=== PATIENT | male | born 1955 | race Hispanic/Latino ===

== ENCOUNTER 2019-05-26 06:51 | Day surgery (SDC) | payer OTHER ==
[2019-05-26] MEDS ORDERED: WATER FOR IRRIG STERILE IR ONE (07:36)
[2019-05-26] MEDS ORDERED: WATER FOR IRRIG STERILE ONE (07:36)
[2019-05-26] MEDS ORDERED: INFANTS' GAS RELIEF PO ONE (07:37)
[2019-05-26] MEDS ORDERED: DIPRIVAN 10 MG/ML IV ONE ×4 (07:58→08:48)
[2019-05-26] MEDS ORDERED: NACL 0.9% 1000 ML 1,000 ML IV SCH (08:00)
[2019-05-26] MEDS ORDERED: XYLOCAINE MPF 2% ONE (08:00)
--- NOTE | 2019-05-26 09:11 | Procedure Note ---
Date of procedure: 05/26/19 Pre-op diagnosis: Colon Polyp Screening Post-op diagnosis: other (Multiple, Colon Polyps (Three in the Cecum, two in the Transverse Colon polyps and Descending Colon Polyps-all snare excised)/Few left Colon Diverticuli/ No Internal Hemorrhoids noted) Procedure: Colonoscopy with snare polypectomy Anesthesia: MAC Surgeon: FLORENTINO ARAUJO Estimated blood loss: minimal Pathology: list Specimen disposition: to lab Condition: stable Disposition: same day (Avoid aspirin and NSAID for 4 days;otherwise resume home medication. Encourage fiber intake and follow up in 1 to 2 weeks ([phone]).)
[2019-05-26 09:21] VITALS: BP 105/69
--- NOTE | 2019-05-26 09:48 | Anesthesia Consultation ---
Anesthesia Consult and Med Hx Date of service: 05/26/19 - Airway Anesthetic Teeth Evaluation: Poor ROM Head & Neck: Adequate Mental/Hyoid Distance: Adequate Mallampati Class: Class II Intubation Access Assessment: Good - Pulmonary Exam CTA: Yes - Cardiac Exam Cardiac Exam: RRR - Pre-Operative Health Status ASA Pre-Surgery Classification: ASA2 Proposed Anesthetic Plan: MAC - Cardiovascular System Hx Hypertension: Yes
--- NOTE | 2019-05-26 09:49 | Anesthesia Day of Surgery ---
Anesthesia Day of Surgery - Day of Surgery Patient Examined: Yes Patient H&P Reviewed: Yes Patient is NPO: Yes
--- NOTE | 2019-05-26 09:49 | Post Anesthesia Evaluation ---
- Post Anesthesia Evaluation Patient Participated: Yes Airway Patent: Yes Stable Respiratory Function: Yes Nausea/Vomiting: No Temp > 96.8F: Yes Pain Manageable: Yes Adequeate Hydration: Yes Anesthesia Complications: No Block Receding Appropriately: Not Applicable Patient on Ventilator: No
--- NOTE | 2019-05-26 12:10 | Operative Report ---
PROCEDURE: Colonoscopy with snare polypectomy. INDICATIONS: A 64-year-old gentleman who has a strong family history of cancer. The patient's sister had breast cancer and other members of his family have also had cancer ____ He has never had a colonoscopy done. This was his first screening colonoscopy. Procedure was done after getting informed consent with MAC anesthesia. DESCRIPTION OF PROCEDURE: The procedure was done in the GI lab with assistance of the GI lab team, which included the GI nurse, Enma, Ivy ferguson and with the assistance of anesthesia. Initial rectal exam was unremarkable. Instrument was passed through the rectum onto the cecum, which was identified with ileocecal valve and appendiceal orifice. The cecum was also viewed in the retroflexed manner. In the cecum, there were 3 polyps noted. These were about 10 mm in diameter and sessile and they were removed by cold snare polypectomy and retrieved using the biopsy forceps. In the ascending colon, there were no additional polyps noted. However in the transverse colon, there were two 10 mm polyps again noted that were removed by cold snare polypectomy as were the previous ones in the cecum. The remaining part of the transverse colon showed normal mucosa. There were a few minor diverticula noted in the left colon. ____ the descending colon, there was a 12-13 mm polyp on a stalk that was removed by snare polypectomy with application of heat and it was retrieved. The rectum appeared normal on the retroverted view. There was minimal bleeding from the biopsy sites. No complications associated with the procedure. ASSESSMENT: Colon polyp screening, family history of cancer. Multiple colon polyps noted, 3 in the cecum, 2 in the transverse, 1 in the descending that were removed by snare polypectomy. Application with heat done to the polyp in the descending colon. The remaining polyps were removed by cold snare polypectomy and there was minor diverticular disease noted in the left colon. The patient will be asked to follow up in 2 weeks' time. Avoid aspirin and aspirin-related products, but resume other medication and encourage to take fiber supplements. JOB# [id number] YASH/TOPHER
== END 2019-05-26 06:52 | disposition home or self-care (01) ==
LOC: GIO 06:51
DX: Z12.11 Encounter for screening for malignant neoplasm of colon (principal); D12.0 Benign neoplasm of cecum; D12.3 Benign neoplasm of transverse colon; D12.4 Benign neoplasm of descending colon; K57.30 Diverticulosis of large intestine without perforation or abscess without bleeding; I10 Essential (primary) hypertension; M06.9 Rheumatoid arthritis, unspecified; F17.210 Nicotine dependence, cigarettes, uncomplicated; Z80.0 Family history of malignant neoplasm of digestive organs; Z85.3 Personal history of malignant neoplasm of breast; Z79.899 Other long term (current) drug therapy; Z98.890 Other specified postprocedural states
CPT/HCPCS: 45385; 88305; J2704; J7030